=== PATIENT | female | born 1990 | race Caucasian/White ===

== ENCOUNTER → 2022-02-25 | Outpatient (CLI) | payer BC ==
--- NOTE | 2022-02-25 08:52 | US ---
EXAMINATION TYPE: US abdomen limited DATE OF EXAM: 02/25/2022 COMPARISON: NONE CLINICAL HISTORY: R19.06 EPIGASTRIC SWELLING, MASS OR LUMP. Patient states feeling lump with pain at midline epigastric area. Patient states having 3 kids almost back to back. Area of concern scanned. Superficial hypoechoic area seen anterior to liver = 3.0 x 1.4 x 0.4 cm. IMPRESSION: 1. Nonspecific hypoechoic collection anterior to the liver at the level of the palpable abnormality. Precise location is somewhat difficult to identify. Recommend CT with contrast for additional evaluat ion.
== END | disposition home or self-care (01) ==
LOC: RADUSWWP 06:53
PROVIDERS: ATTEND Internal Medicine Endocrinology, Diabetes & Metabolism
DX: R19.06 Epigastric swelling, mass or lump (principal)
CPT/HCPCS: 76705

== ENCOUNTER → 2022-03-15 | Outpatient (CLI) | payer BC ==
--- NOTE | 2022-03-15 17:59 | CT ---
EXAMINATION TYPE: CT abdomen wo/w con DATE OF EXAM: 03/15/2022 COMPARISON: Ultrasound 02/25/2022 HISTORY: Epigastric swelling, mass or lump CT DLP: 569.9 mGycm CONTRAST: CT scan of the abdomen is performed with Oral Contrast and with IV Contrast, patient injected with 10 0ml mL of Isovue 300. FINDINGS: LUNG BASES-: No visible nodule. No infiltrate. LIVER/GB: Abnormality seen at ultrasound is felt to reflect portions of the diaphragm. I do not see evidence for collection or mass. No calcified gallstones. No space occupying hepatic lesion. Biliary tree is of normal caliber. PANCREAS: No inflammation. No distinct mass. SPLEEN: No splenic enlargement. No lesion seen. ADRENALS: No nodule. No thickening. KIDNEYS/BLADDER: No hydronephrosis. No nephrolithiasis. No distinct renal mass. Urinary bladder g rossly unremarkable. BOWEL: Visualized portions of the bowel appear to be grossly unremarkable. LYMPH NODES: No greater than 1cm abdominal or pelvic lymph nodes are appreciated. AORTA: No significant abnormality. OSSEOUS STRUCTURES: No significant abnormality is seen. OTHER: No significant additional abnormality is seen. IMPRESSION: 1. Abnormality seen at ultrasound is felt to reflect portions of the diaphragm. I do not see evidence for collection or mass.
== END | disposition home or self-care (01) ==
LOC: RADCTMAIN 16:19
PROVIDERS: ATTEND Internal Medicine Endocrinology, Diabetes & Metabolism
DX: R19.06 Epigastric swelling, mass or lump (principal)
CPT/HCPCS: 74170; Q9967